=== PATIENT | female | born 1990 | race Caucasian/White ===

== ENCOUNTER 2021-05-18 06:40 | Inpatient (IN) | payer BC, SELFPAY ==
[2021-05-18] VITALS (86 sets, daily range): BP systolic 86–141; BP diastolic 52–92; PULSE 62–142; RESP 16; TEMP 36.4–38.2; O2SAT 96–100; BMI 34.0
[2021-05-18 07:18] LABS: ROM Internal Control Test YES-OK TO RESULT pt. (Internal QC)
[2021-05-18 07:20] LABS: ROM Patient Test POSITIVE (Negative)
[2021-05-18] MEDS: Lactated Ringers 1,000 ML 50 ML IV (07:20)
[2021-05-18 07:32] LABS: Absolute Lymphocyte Count 1.21 X10^3/uL (0.83-4.51); Absolute Neutrophil Count 13.8 X10^3/uL (2.0-7.7); Basophil# 0.03 X10^3/uL; Basophil% 0.2 % (0-1); Eosinophil# 0.02 X10^3/uL; Eosinophils% 0.1 % (0-5); Hematocrit 36.7 % (37-47); Hemoglobin 12.1 g/dL (12.0-15.0); Lymphocyte # 1.21 X10^3/ul (0.83-4.51); Lymphocyte % 7.6 % (19-41); Mean Corpuscular Hgb 29.1 pg (27.0-32.0); Mean Corpuscular Volume 88.2 fL (81-99); Monocyte# 0.79 X10^3/uL; NRBC Flagged by Analyzer 0 % (0-5); Neutrophil # 13.81 X10^3/uL (2.7-7.7); Neutrophil % 86.6 % (47-70); Platelet Count 269 K/mm3 (150-450); RBC Distribution Width SD 45.2 fl (35.1-43.9); Red Blood Count 4.16 M/mm3 (4.2-5.4); White Blood Count 15.9 K/mm3 (4.4-11.0)
[2021-05-18] MEDS: Lactated Ringers 500 ML 999 ML IV ×2 (07:50→08:35)
[2021-05-18] MEDS: Ondansetron 4 MG/2 ML Vial IV (07:56)
--- NOTE | 2021-05-18 08:05 | HP.PCM.OB_ITS ---
HPI - General General Date of Admission: 05/18/21 HPI Narrative ERIC VALERA, is a 30 F at 40.4 weeks gestation who presents with spontaneous rupture of membranes for clear fluid at 0245. Positive movement. Having some irregular contractions. Maternal Data Information GIANLUCA Calculator Estimated Delivery Date Method Current WG Current Estimate 05/14/21 Manual 40w 4d PFSH PFSH Medical History Anxiety Breast disorder Depression Headache HPV (human papilloma virus) infection Home Medications acetaminophen [Tylenol] 650 mg PO Q6H PRN 05/18/21 [History Last Taken Unknown] diphenhydramine-acetaminophen [Unisom Dual Relief] 1 tab PO PRN PRN 05/18/21 [History Last Taken 05/11/21 22:00] prenat.vits,azra,[id number] [ #2] 1 tab PO DAILY 05/18/21 [History La st Taken Unknown] Allergy/AdvReac Type Severity Reaction Status Date / Time shellfish derived Allergy Severe Swelling Verified 05/18/21 07:30 amoxicillin [From Augmentin] Allergy Intermediate Hives Verified 05/18/21 07:30 clavulanic acid Allergy Intermediate Hives Verified 05/18/21 07:30 [From Augmentin] Surgical History History of surgery History of surgery Social History Smoking Status: Never smoker History Elective abortions Hx Para 0 Spontaneous abortions Hx # Term Pregnancies Ectopic pregnancies Hx # Pregnancies Multiple births # of living children NST FHR Rate Baby A Baseline: 140 Variability:: Moderate Accelerations:: 15 x 15 Decelerations:: None NST Reactive:: Yes FHR Category:: Category I Uterine Activity:: occasional ROS Eyes Eyes: Denies blurry vision, change in vision or spots in vision ENT HEENT: Denies dizziness or headache(s) Cardiovascular Cardiovascular: Denies abdominal pain, chest pain or dyspnea Respiratory/Chest Respiratory/Chest: Denies cough, dyspnea, shortness of breath at rest or shortness of breath with exertion Gastrointestinal Gastrointestinal: Denies abdominal pain, diarrhea or vomiting Genitourinary Genitourinary: Denies change in urinary stream, difficulty urinating or dysuria Musculoskeletal Musculoskeletal: Reports none Integumentary Integumentary: Denies rash Neurologic Neurologic: Denies dizziness, headache(s), memory loss or weakness Psychiatric Psychiatric: Reports none Vital Signs Vital Signs Vital Signs: 05/18/21 07:38 05/18/21 07:41 05/18/21 08:34 Temperature 99.6 F H Temperature Source Temporal Pulse Rate 65 81 Blood Pressure 117/64 BP Systolic 117 BP Diastolic 64 Pulse Ox 96 05/18/21 08:39 05/18/21 08:44 05/18/21 08:53 Temperature Temperature Source Pulse Rate 70 69 98 Blood Pressure BP Systolic BP Diastolic Pulse Ox 99 98 98 05/18/21 08:58 05/18/21 09:03 05/18/21 09:08 Temperature Temperature Source Pulse Rate 98 111 H 98 Blood Pressure 132/84 H 141/92 H 138/81 H BP Systolic 132 141 138 BP Diastolic 84 92 81 Pulse Ox 98 98 99 05/18/21 09:15 05/18/21 09:18 05/18/21 09:23 Temperature Temperature Source Pulse Rate 97 73 83 Blood Pressure 123/61 H 99/55 L 101/57 L BP Systolic 123 99 101 BP Diastolic 61 55 57 Pulse Ox 100 05/18/21 09:28 05/18/21 09:33 05/18/21 09:34 Temperature 98.1 F Temperature Source Pulse Rate 77 66 70 Blood Pressure 112/55 L 107/56 L 105/58 L BP Systolic 112 107 105 BP Diastolic 55 56 58 Pulse Ox 100 100 05/18/21 09:38 05/18/21 09:43 05/18/21 09:48 Temperature Temperature Source Pulse Rate 62 115 H 101 H Blood Pressure 112/56 L 109/56 L 101/57 L BP Systolic 112 109 101 BP Diastolic 56 56 57 Pulse Ox 100 98 98 05/18/21 09:53 05/18/21 09:58 05/18/21 10:03 Temperature Temperature Source Pulse Rate 85 108 H 113 H Blood Pressure 102/57 L 100/57 L BP Systolic 102 100 BP Diastolic 57 57 Pulse Ox 98 98 99 05/18/21 10:04 05/18/21 10:08 05/18/21 10:09 Temperature Temperature Source Pulse Rate 114 H 112 H 109 H Blood Pressure 108/59 L 125/64 H BP Systolic 108 125 BP Diastolic 59 64 Pulse Ox 99 05/18/21 10:13 05/18/21 10:14 05/18/21 10:19 Temperature Temperature Source Pulse Rate 123 H 127 H 127 H Blood Pressure 107/63 111/66 104/61 BP Systolic 107 111 104 BP Diastolic 63 66 61 Pulse Ox 05/18/21 10:24 05/18/21 11:58 05/18/21 11:59 Temperature 100.0 F H Temperature Source Pulse Rate 109 H 107 H Blood Pressure 118/63 113/62 BP Systolic 118 113 BP Diastolic 63 62 Pulse Ox 05/18/21 13:33 05/18/21 13:48 05/18/21 13:58 Temperature 100.8 F H Temperature Source Pulse Rate 115 H 122 H Blood Pressure 105/52 L 109/57 L BP Systolic 105 109 BP Diastolic 52 57 Pulse Ox 05/18/21 14:03 05/18/21 14:07 05/18/21 14:18 Temperature 99.5 F H Temperature Source Temporal Pulse Rate 120 H Blood Pressure 107/69 97/57 L BP Systolic 107 97 BP Diastolic 69 57 Pulse Ox 05/18/21 14:19 05/18/21 14:24 05/18/21 14:29 Temperature Temperature Source Pulse Rate 123 H 113 H 121 H Blood Pressure BP Systolic BP Diastolic Pulse Ox 96 96 97 05/18/21 14:33 05/18/21 14:34 05/18/21 14:39 Temperature Temperature Source Pulse Rate 129 H 122 H 128 H Blood Pressure 98/55 L BP Systolic 98 BP Diastolic 55 Pulse Ox 97 97 05/18/21 14:44 05/18/21 14:48 05/18/21 14:49 Temperature Temperature Source Pulse Rate 126 H 127 H 124 H Blood Pressure 98/60 BP Systolic 98 BP Diastolic 60 Pulse Ox 97 96 05/18/21 14:54 05/18/21 14:59 05/18/21 15:03 Temperature Temperature Source Pulse Rate 127 H 131 H Blood Pressure 91/54 L BP Systolic 91 BP Diastolic 54 Pulse Ox 97 97 05/18/21 15:04 05/18/21 15:09 05/18/21 15:14 Temperature Temperature Source Pulse Rate 122 H 142 H 137 H Blood Pressure BP Systolic BP Diastolic Pulse Ox 97 97 98 05/18/21 15:18 05/18/21 15:19 05/18/21 15:23 Temperature Temperature Source Pulse Rate 133 H 128 H Blood Pressure 99/62 86/54 L BP Systolic 99 86 BP Diastolic 62 54 Pulse Ox 97 05/18/21 15:24 05/18/21 15:29 05/18/21 15:33 Temperature Temperature Source Pulse Rate 101 H 119 H 118 H Blood Pressure 100/60 BP Systolic 100 BP Diastolic 60 Pulse Ox 98 99 05/18/21 15:34 05/18/21 15:36 05/18/21 15:39 Temperature 97.5 F L Temperature Source Pulse Rate 123 H 132 H Blood Pressure BP Systolic BP Diastolic Pulse Ox 97 98 05/18/21 15:44 05/18/21 15:47 05/18/21 15:49 Temperature Temperature Source Pulse Rate 131 H 112 H 126 H Blood Pressure 115/63 BP Systolic 115 BP Diastolic 63 Pulse Ox 98 98 05/18/21 15:54 05/18/21 15:59 05/18/21 16:04 Temperature Temperature Source Pulse Rate 113 H 126 H 118 H Blood Pressure BP Systolic BP Diastolic Pulse Ox 98 98 98 05/18/21 16:09 05/18/21 16:14 05/18/21 16:19 Temperature Temperature Source Pulse Rate 119 H 115 H 118 H Blood Pressure BP Systolic BP Diastolic Pulse Ox 98 98 98 05/18/21 16:24 05/18/21 16:29 05/18/21 16:34 Temperature Temperature Source Pulse Rate 120 H 124 H 133 H Blood Pressure BP Systolic BP Diastolic Pulse Ox 98 98 98 05/18/21 16:39 05/18/21 16:44 05/18/21 16:49 Temperature Temperature Source Pulse Rate 128 H 127 H 127 H Blood Pressure BP Systolic BP Diastolic Pulse Ox 98 98 98 05/18/21 16:54 05/18/21 16:59 05/18/21 17:04 Temperature Temperature Source Pulse Rate 124 H 132 H 117 H Blood Pressure BP Systolic BP Diastolic Pulse Ox 98 98 98 05/18/21 17:09 05/18/21 17:14 05/18/21 17:19 Temperature Temperature Source Pulse Rate 126 H 123 H 121 H Blood Pressure 108/61 BP Systolic 108 BP Diastolic 61 Pulse Ox 98 99 98 05/18/21 17:24 05/18/21 17:29 05/18/21 17:52 Temperature Temperature Source Pulse Rate 128 H 124 H 134 H Blood Pressure BP Systolic BP Diastolic Pulse Ox 98 98 98 Weight Weight: 210 lb 8 oz Body Mass Index (BMI) 34.0 Physical Exam Const alert, oriented x3 and no apparent distress General Appearance: cooperative Orientation / Consciousness: awake Exam Limitations: no limitations HEENT normocephalic Head and Scalp: normal to inspection Eyes General Eye: normal appearance of both eyes Neck full ROM and no lymphadenopathy Lymph Lymphatic: no lymphadenopathy noted Chest inspection of chest normal Resp normal respiratory effort, normal air movement and clear to auscultation bilaterally Effort and Inspection: able to speak in complete sentences and symmetric chest movement Cardio regular rate and regular rhythm GI normal to inspection, nondistended, normoactive bowel sounds Manual OB Exam: presentation cephalic, dilated 4, effaced 80 and station 0 Amniotic Fluid: clear amniotic fluid Back/Spine normal ROM Extremity full ROM and no calf tenderness Skin no rashes or lesions noted General Skin Exam: no breakdown Neuro oriented x3 and CN's II-XII intact bilaterally Psych mental status grossly normal and thought process normal Labs Labs Labs: Blood Type B POSITIVE Antibody Screen NEGATIVE Hct 36.7 % (37-47) L Hgb 12.1 g/dL (12.0-15.0) Rubella - immune HB -neg HC - neg HIV- Nr RPR- NR GBS- negative COVID- negative Assessment & Plan (1) 40 weeks gestation of : (2) Spontaneous rupture of amniotic membranes: PLAN: Admit to labor and delivery Routine labs Start IV fluids and titrate per orders GBS negative Anticipate Dr. Ledezma notified and is collaborating physician
--- NOTE | 2021-05-18 08:46 | PCM.PN.OB ---
Objective Data Objective Data Vital Signs: Vital Signs Temp Pulse BP Pulse Ox 99.6 F H 69 117/64 98 05/18/21 07:38 05/18/21 08:44 05/18/21 07:41 05/18/21 08:44 Weight: 210 lb 8 oz Body Mass Index (BMI) 34.0 Intake & Output: Intake and Output for Last 24 Hours 05/16/21 05/17/21 05/18/21 23:59 23:59 23:59 Intake Total 536.67 / 536.67 Balance 536.67 / 536.67 Lab / Micro Data Result Diagrams: 05/18/21 07:20 Labs: Laboratory Results - last 24 hr 05/18/21 07:00: Vag Amniotic Fld Detect POSITIVE H 05/18/21 07:20: WBC 15.9 H, RBC 4.16 L, Hgb 12.1, Hct 36.7 L, MCV 88.2, MCH 29.1, MCHC 33.0, RDW Std Deviation 45.2 H, RDW Coeff of Juan José 14.0, Plt Count 269, MPV 11.0, Immature Gran % (Auto) 0.500, Neut % (Auto) 86.6 H, Lymph % (Auto) 7.6 L, [place] % (Auto) 5.0, Eos % (Auto) 0.1, Baso % (Auto) 0.2, Absolute Neuts (auto) 13.8 H, Absolute Lymphs (auto) 1.21, Nucleated RBC % 0
[2021-05-18] MEDS: fentaNYL-bupivacaine (epidural) 100 ML BAG EPIDURAL (09:15)
[2021-05-18] MEDS: Oxytocin 30 units/NS 500 ml 30 UNITS/500 ML IV.SOLN IV (12:33)
[2021-05-18] MEDS: Oxytocin 30 units/NS 500 ml 30 UNITS/500 ML IV.SOLN 999 UNITS IV (13:06)
[2021-05-18] MEDS: Lactated Ringers 500 ML IV.SOLN. IV (15:10)
--- NOTE | 2021-05-18 18:13 | NURSING ---
Called CNM Plotts to give 2 hour update about patients Pule rate of 135. CNM states that she was updated by Dr. Ledezma and agreed to wait till 1800 to recheck pulse. Pt Asymptomatic and denies difficulty breathing or chest pain, lung sounds clear. EKG ordered by CNM.
--- NOTE | 2021-05-18 18:16 | EKG12_ITS ---
Test Reason : TACHYCARDIA Blood Pressure : / mmHG Vent. Rate : 123 BPM Atrial Rate : 123 BPM P-R Int : 118 ms QRS Dur : 068 ms QT Int : 314 ms P-R-T Axes : 057 057 031 degrees QTc Int : 449 ms Sinus tachycardia Otherwise normal ECG Confirmed by RADHA SIGALA, JANAE ([id number]), story editor GERARD TORRES ([id number]) on 05/23/2021 9:04:22 AM Referred By: SEAN MADDEN Confirmed By:JANAE GARCIA MD
--- NOTE | 2021-05-18 19:23 | OP.PCM_ITS ---
Assessment & Plan (1) Spontaneous rupture of amniotic membranes: (2) 40 weeks gestation of : (3) (spontaneous vaginal delivery): Maternal Data Information GIANLUCA Calculator Estimated Delivery Date Method Current WG Current Estimate 05/14/21 Manual 40w 4d Vaginal Delivery Maternal Presentation Maternal Presentation: Spontaneous Rupture of Membranes Operative Information Pre-Operative Diagnosis: Term Gestation, SROM Post-Operative Diagnosis: , live female Surgery / Procedure Performed: Spontaneous Vaginal Delivery Type of Anesthesia: Epidural Estimated Blood Loss: 450 Time of Delivery: 12:51 Findings Description of Procedure: Called to patient room for delivery. Patient pushing well with contraction and delivered infant head with minimal maternal effort followed by anterior shoulder. Posterior shoulder and remainder of delivered. Vigorous female placed on maternal abdomen and was attended to by [facility] staff. IV pitocin started for active managment of the third stage of labor. Cord clamped and cut vy FOB after 2 minute delay and infant placed skin to skin. Placenta delivered spontaneously and intact. After inspection, a first degree vaginal laceration and a second degree perineal laceration noted. Both lacerations repaired in usual fashion with 3-0 Vicryl Rapid. Hemostasis obtained. Vaginal sweep completed by me. Fundus firm 1 below U. EBL 450 cc, APGARS 9/9. Patient bonding with infant at this time. Dr. Ledezma notified of delivery. Presentation: Vertex Amniotic Membrane Rupture Type: Spontaneous Time of Membrane Rupture: 244 Amniotic Fluid Description: Clear Placental Delivery Description: Spontaneous Placenta Disposition: [facility] Cord Vessel Description: 3 Vessels Cord Entanglement: None A Gender: Female (1 minute): 9 (5 minute): 9 Delayed Cord Clamping: Yes Post Vaginal Delivery Medications Given After Delivery: IV Pitocin Episiotomy Description: None Laceration: Perineal Extension/lac, Vaginal Extension/lac and 2nd degree Complication Complications: None
[2021-05-18] MEDS: Naproxen 500 MG Tablet PO (22:25)
[2021-05-19] VITALS (8 sets, daily range): BP systolic 109–114; BP diastolic 63–71; PULSE 97–112; RESP 14–16; TEMP 36.3–37.4; O2SAT 96
[2021-05-19 05:53] LABS: Hematocrit 30.4 % (37-47); Hemoglobin 9.8 g/dL (12.0-15.0); Mean Corp Hgb Conc 32.2 g/dL (32-36); Mean Corpuscular Hgb 28.9 pg (27.0-32.0); Mean Corpuscular Volume 89.7 fL (81-99); Mean Platelet Vol. 11.2 fl (6.2-12.0); Platelet Count 206 K/mm3 (150-450); RBC Distribution Width CV 14.2 % (11.6-14.6); RBC Distribution Width SD 46.2 fl (35.1-43.9); Red Blood Count 3.39 M/mm3 (4.2-5.4); White Blood Count 14.2 K/mm3 (4.4-11.0)
--- NOTE | 2021-05-19 08:09 | PCM.DC ---
Discharge Instructions Follow Up Care Test Results: Test results from this visit will be discussed in further detail at your follow-up appointment, if applicable. Discharge Plan Admission Admit Date/Time: 05/18/21 06:40 Primary Reason for Your Visit: Delivery Attending Provider: Gretchen Stephenson Instructions Patient Instructions: After a Vaginal , After Delivery Concerns, : Caring for Yourself Discharge Orders/Prescriptions Prescriptions: Continued prenat.vits,azra,[id number]-[id number] Tablet 1 tab PO DAILY RF: 0 Discontinued acetaminophen [Tylenol] 325 mg Tablet 650 mg PO Q6H PRN (Reason: Sleep) RF: 0 Unisom Dual Relief 50-650 mg Tablet 1 tab PO PRN PRN (Reason: Sleep) RF: 0 Disposition Disposition (needs filled in before D/C Order can be placed): Home, Self Care
--- NOTE | 2021-05-19 08:09 | PCM.PN.OB ---
Subjective Subjective Patient seen at bedside. Patient doing well desires discharge home. Pain well controlled. Ambulating and voiding without difficulty. Lochia normal. Denies chest pain, shortness of breath, leg pain. Objective Data Objective Data Vital Signs: Vital Signs Temp Pulse Resp BP Pulse Ox 97.3 F L 99 16 114/71 96 05/19/21 04:25 05/19/21 04:25 05/19/21 04:25 05/19/21 04:25 05/19/21 00:48 Oxygen Delivery Method Room Air Weight: 210 lb 8 oz Body Mass Index (BMI) 34.0 Intake & Output: Intake and Output for Last 24 Hours 05/17/21 05/18/21 05/19/21 23:59 23:59 23:59 Intake Total 2277.27 / 2277.27 Output Total 1000 / 1000 Balance 1277.27 / 1277.27 Lab / Micro Data Result Diagrams: 05/19/21 05:15 Labs: Laboratory Results - last 24 hr 05/18/21 07:20: Blood Type B POSITIVE, Antibody Screen NEGATIVE 05/19/21 05:15: WBC 14.2 H, RBC 3.39 L, Hgb 9.8 L, Hct 30.4 L, MCV 89.7, MCH 28.9, MCHC 32.2, RDW Std Deviation 46.2 H, RDW Coeff of Juan José 14.2, Plt Count 206, MPV 11.2 Physical Exam Const alert and no apparent distress General Appearance: comfortable HEENT normocephalic Resp normal respiratory effort Extremity normal to inspection Assessment & Plan (1) (spontaneous vaginal delivery): PLAN: Patient doing well and desires discharge home. Meeting milestones to go home. Discharge instructions reviewed. Discharge order placed. (2) Laceration, obstetrical, second degree:
== END 2021-05-19 15:00 | disposition home or self-care (01) | DRG 807 ==
PROVIDERS: Advanced Practice Midwife; Admitting Provider Advanced Practice Midwife; Visit Provider Advanced Practice Midwife
DX: O42.02 Full-term premature rupture of membranes, onset of labor within 24 hours of rupture (principal); Z37.0 Single live birth; O70.1 Second degree perineal laceration during delivery; Z3A.40 40 weeks gestation of pregnancy
CPT/HCPCS: 59025; 59050; 84112; 85025; 85027; 86850; 86900; 86901; 93005; 99218; J7120; G0378; J2405

== ENCOUNTER → 2021-05-21 20:04 | Outpatient (CLI) | payer BC, SELFPAY ==
[2021-05-18 07:26] VITALS: BMI 34.0
== END ==
PROVIDERS: Referring Provider Advanced Practice Midwife; Visit Provider Advanced Practice Midwife
DX: Z39.1 Encounter for care and examination of lactating mother (principal)
CPT/HCPCS: 96158; 96159

== ENCOUNTER 2021-11-22 12:06 | Outpatient (CLI) | payer BC, SELFPAY ==
--- NOTE | 2021-11-22 12:18 | US_ITS ---
STUDY: THYROID ULTRASOUND REASON FOR EXAM: Female, 31 years old. ENLARGED THYROID TECHNIQUE: Ultrasound evaluation of the thyroid was performed with real-time and static aviles-scale imaging. COMPARISON: None. FINDINGS: RIGHT LOBE: The right lobe of the thyroid gland measures 4.3x1.5 cm. There is a homogeneous echotexture. There is a nodule. This measures 2 x 3 x 2 mm. The lesion is cystic with regular margins and kervin nodular doppler flow. LEFT LOBE: The left lobe of the thyroid gland measures 4.3 x 1.4 cm. There is a homogeneous echotexture. There is a nodule. This measures 3 x 2 x 2 mm. The lesion is cystic with regular margins and kervin nodular doppler flow. ISTHMUS: The isthmus measures 3 mm. US/Thyroid IMPRESSION: There are RIGHT nodules. This nodule is cystic or nearly completely cystic. TI-RADS points: 0. TI-RADS category: TR1. This nodule is benign and no FNA or follow-up is necessary. There are left nodules. TR1: Benign: No FNA Electronically Signed: Yaniv Mauro MD at 16:16 EST Reading Location ID and State: [facility] / [place] , Service support ,
== END 2021-11-22 23:59 | disposition home or self-care (01) ==
PROVIDERS: PCP Nurse Practitioner; Referring Provider Nurse Practitioner; Visit Provider Nurse Practitioner
DX: E04.9 Nontoxic goiter, unspecified (principal)
CPT/HCPCS: 76536

== ENCOUNTER 2023-06-08 05:14 | Inpatient (IN) | payer BC, SELFPAY ==
[2023-06-08] VITALS (37 sets, daily range): BP systolic 102–144; BP diastolic 64–87; PULSE 77–202; RESP 16; TEMP 36.1–37.2; O2SAT 82–98; BMI 35.3
[2023-06-08 05:12] LABS: ROM Internal Control Test YES-OK TO RESULT pt. (Internal QC)
[2023-06-08 05:13] LABS: ROM Patient Test POSITIVE (Negative); Record Kit Lot#, ROM+ K1374
[2023-06-08] MEDS: LACTATED RINGERS 500 ML 999 ML IV (05:40)
[2023-06-08 05:49] LABS: Absolute Lymphocyte Count 1.78 X10^3/uL (0.83-4.51); Absolute Neutrophil Count 7.6 X10^3/uL (2.0-7.7); Basophil# 0.02 X10^3/uL; Basophil% 0.2 % (0-1); Eosinophil# 0.07 X10^3/uL; Eosinophils% 0.7 % (0-5); Hematocrit 37.2 % (37-47); Hemoglobin 12.3 g/dL (12.0-15.0); Lymphocyte # 1.78 X10^3/ul (0.83-4.51); Lymphocyte % 17.5 % (19-41); Mean Corp Hgb Conc 33.1 g/dL (32-36); Mean Corpuscular Hgb 28.6 pg (27.0-32.0); Mean Corpuscular Volume 86.5 fL (81-99); Mean Platelet Vol. 10.6 fl (6.2-12.0); Monocyte# 0.72 X10^3/uL; Monocyte% 7.1 % (0-10); NRBC Flagged by Analyzer 0 % (0-5); Neutrophil # 7.56 X10^3/uL (2.7-7.7); Neutrophil % 74.1 % (47-70); Platelet Count 285 K/mm3 (150-450); RBC Distribution Width CV 14.2 % (11.6-14.6); White Blood Count 10.2 K/mm3 (4.4-11.0)
[2023-06-08] MEDS: Lactated Ringers 1,000 ML 50 ML IV (06:26)
[2023-06-08] MEDS: Oxytocin 10 UNITS/ML Vial IM (08:53)
[2023-06-08] MEDS: Oxytocin 15 Units/NS 250ml 15 UNITS/250 ML IV.SOLN 83 UNITS IV (08:53)
--- NOTE | 2023-06-08 08:53 | PCM.HP.OB ---
HPI - General General Date of Admission: 06/08/23 Date of Service: 06/08/23 HPI Narrative ERIC VALERA, is a 32 F who presents with LOF and ctxs. Maternal Data Information Final GIANLUCA: 06/10/23 Gestational age: 39&5 PFSH PFSH Medical History (Updated 06/08/23 @ 08:[address] Kamilah Guidry MD) Anxiety Anxiety Breast disorder Depression Headache Headache HPV (human papilloma virus) infection HPV (human papilloma virus) infection (spontaneous vaginal delivery) Home Medications prenat.vits,azra,iby-fami-dbhra 1 tab PO DAILY Check with primary doctor 05/18/21 [History Last Taken Unknown] Allergy/AdvReac Type Severity Reaction Status Date / Time shellfish derived Allergy Severe Swelling Verified 06/08/23 04:52 acetaminophen [From Percocet] Allergy Intermediate Hives Verified 06/08/23 04:52 amoxicillin [From Augmentin] Allergy Intermediate Hives Verified 06/08/23 04:52 clavulanic acid Allergy Intermediate Hives Verified 05/18/21 07:30 [From Augmentin] oxycodone [From Percocet] Allergy Intermediate Hives Verified 06/08/23 04:52 Surgical History History of appendectomy History of surgery History of surgery History of surgery Social History Smoking Status: Current every day smoker History Elective abortions Hx Para 1 Spontaneous abortions Hx # Term Pregnancies Ectopic pregnancies Hx # Pregnancies Multiple births # of living children Vital Signs Vital Signs Vital Signs: 06/08/23 04:18 06/08/23 04:18 06/08/23 04:20 Temperature Temperature Source Pulse Rate 106 H Blood Pressure 131/77 H BP Systolic 131 BP Diastolic 77 Pulse Ox 96 06/08/23 04:20 06/08/23 06:29 06/08/23 06:29 Temperature Temperature Source Pulse Rate 91 102 H Blood Pressure 144/87 H BP Systolic 144 BP Diastolic 87 Pulse Ox 06/08/23 06:29 06/08/23 06:29 06/08/23 07:29 Temperature 98.9 F Temperature Source Temporal Pulse Rate Blood Pressure 126/76 H BP Systolic 126 BP Diastolic 76 Pulse Ox 06/08/23 07:29 06/08/23 07:29 06/08/23 07:29 Temperature Temperature Source Temporal Pulse Rate 106 H 106 H Blood Pressure BP Systolic BP Diastolic Pulse Ox 06/08/23 07:29 06/08/23 07:29 06/08/23 07:50 Temperature 97.1 F L Temperature Source Pulse Rate 99 Blood Pressure BP Systolic BP Diastolic Pulse Ox 97 06/08/23 07:50 06/08/23 07:52 06/08/23 08:13 Temperature Temperature Source Pulse Rate 115 H Blood Pressure 129/74 H BP Systolic 129 BP Diastolic 74 Pulse Ox 98 06/08/23 08:13 06/08/23 08:13 06/08/23 08:13 Temperature Temperature Source Temporal Pulse Rate 106 H Blood Pressure BP Systolic BP Diastolic Pulse Ox 94 06/08/23 08:13 06/08/23 08:13 06/08/23 08:13 Temperature 97.6 F L Temperature Source Pulse Rate 109 H Blood Pressure BP Systolic BP Diastolic Pulse Ox 97 Weight Weight: 219 lb Body Mass Index (BMI) 35.3 Labs Labs Labs: Blood Type B POSITIVE Antibody Screen NEGATIVE Hct 37.2 % (37-47) Hgb 12.3 g/dL (12.0-15.0) Syphilis Total Ab Pending see [facility] H&P Assessment & Plan (1) 39 weeks gestation of : COMMENT: @ 39&5 PLAN: Plan Admit to L&D GBS negative Patient is now s/p vaginal delivery
[2023-06-08] MEDS: Lidocaine 1% (20 ml mdv) 20 ML Vial INFILT (08:58)
--- NOTE | 2023-06-08 09:12 | OP.PCM_ITS ---
Assessment & Plan (1) (spontaneous vaginal delivery): COMMENT: KW IOL active labor (2) 39 weeks gestation of : COMMENT: @ 39&5 Maternal Data Information Final GIANLUCA: 06/10/23 Final GIANLUCA Source: [place] >20 weeks Gestational age: 39.5 weeks Vaginal Delivery Maternal Presentation Maternal Presentation: Active Labor Maternal Presentation: Progressed well to 10cm dilated and made steady progress with effective maternal pushing. Delivered the head in MICK presentation. The head was delivered atraumatically and no loose nuchal cord was identified . The anterior and posterior shoulders delivered without complication followed by the rest of the infant and the infant was placed on the maternal abdomen. Delayed cord clamping was employed for approximately 3 minutes. Cord was clamped and cut and gentle traction was applied to the cord and the placenta delivered spontaneously. Immediately following, it was noted to be intact with a 3 vessel cord. The perineum and vagina were inspected and noted to have a first degree laceration which was repaired with 3-0 Vicryl in the usual fashion. EBL was 100cc. Patient and tolerated delivery well. Apgars 9/9. Delivery for [facility], Dr Guidry aware of delivery. Dr Tripathi notified of vaginal delivery and orders reviewed. Physician agrees with current plan of care. Operative Information Date of Procedure: 06/08/23 Pre-Operative Diagnosis: See AP comments Post-Operative Diagnosis: Same Surgery / Procedure Performed: Spontaneous Vaginal Delivery nurse intern #1: Lindsey Max Type of Anesthesia: None Estimated Blood Loss: 100 Time of Delivery: 08:45 Findings Presentation: Vertex Placenta Disposition: [facility] Cord Vessel Description: 3 Vessels Cord Entanglement: None A Gender: Male (1 minute): 9 (5 minute): 9 Post Vaginal Delivery Medications Given After Delivery: IV Pitocin and IM Pitocin Episiotomy Description: None Laceration: 1st degree Complication Complications: None Multi Select Codes Urinary/Genital Urinary/Genital CPT Codes: 10005 Vaginal Delivery Only
[2023-06-08] MEDS: Ibuprofen 600 MG Tablet PO ×2 (09:41→15:22)
[2023-06-08] MEDS: Acetaminophen 500 MG Tablet 1000 MG PO (11:49)
--- NOTE | 2023-06-08 20:39 | CASEMGMT ---
Social Work Assessment Labor and Delivery Unit Patient Address: [address] [place] [address] Phone number: [phone] Date of Referral: 06/08/2023 Time of Referral:? 12:20 Referred By: Lindsey Max Date of Intervention: ?06/08/2023 Time of Intervention:? 17:00 Reason for Referral:? Mental Health History obtained from: medical records and mother of baby (MOB) and FOB Household composition: MOB, FOB ? Gil, 2 year old sister Cee and new baby Patient's parent/guardian status: MOB and FOB are and have been together 5 years. They share a 2-year-old daughter. DV concerns denied. Medical History: MOB received adequate care. One prior child and denies medical concerns for self and child. Baby boy Vipul 9/9 apgars and 6lbs 13 oz. MOB plans to breastfeed and did with prev child. Educational Status: No literacy concerns Financial Status: No financial concerns Infant Supplies: Parents report having all necessary supplies and equipment Childcare/Caregiver(s):? 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 No concerns Programs/Agencies Involved: ??None Children Services/Legal Issues:??? None Behavioral Health Issues: ??Mental Health History: Mother denies any major mental health concerns/history. Mother has history of anxiety. Substance Use History:?? Denies personal history Family History: MOB?s father has history of alcoholism but any other family history.??? Drug Screens: ?None Family/Social Stressors:? Denies Support Systems: Grandparents are involved and supportive Depression: Education provided and parents receptive Shaken Baby: Education provided and parents receptive Safe Sleeping: Education provided and parents receptive ASSESSMENT: MOB and FOB appropriate. No immediate concerns or needs at this time.? PLAN:? ?No other services requested or indicated Mindy Diaz ADVERTISING CAMPAIGN MANAGER, PRODUCT DEVELOPMENT DIRECTOR
[2023-06-09 03:53] VITALS: BP 117/79; PULSE 91; RESP 16; TEMP 36.5; O2SAT 99
[2023-06-09] MEDS: Ibuprofen 600 MG Tablet PO (06:39)
--- NOTE | 2023-06-09 08:22 | PCM.PROGNOTE ---
Subjective Subjective patient seen at bedside, doing well. Patient reports good pain control. lochia mild. Objective Data Objective Data Vital Signs: Vital Signs Temp Pulse Resp BP Pulse Ox O2 Del Method 97.7 F L 91 16 117/79 99 Room Air 06/09/23 03:53 06/09/23 03:53 06/09/23 03:53 06/09/23 03:53 06/09/23 03:53 06/09/23 03:53 Oxygen Delivery Method Room Air Weight: 99.337 kg Body Mass Index (BMI) 35.3 Intake & Output: Intake and Output for Last 24 Hours 06/07/23 06/08/23 06/09/23 23:59 23:59 23:59 Intake Total 811.67 / 811.67 Output Total 900 / 900 Balance -88.33 / -88.33 Lab / Micro Data 06/08/23 05:40 Physical Exam Narrative Abd: fundus firm Const alert and oriented x3 General Appearance: cooperative HEENT normocephalic Neck General: normal visual inspection GI soft to palpation and non-distended GI Narrative: Fundus firm Extremity normal to inspection and no calf tenderness Skin no rashes or lesions noted Neuro oriented x3 and CN's II-XII intact bilaterally Psych mental status grossly normal Assessment & Plan Assessment/Plan (1) (spontaneous vaginal delivery): (2) 39 weeks gestation of : (3) First degree laceration of perineum during delivery, : PLAN: Plan PPD# 1 , Doing well Routine care pain mgmt ambulation dc home
--- NOTE | 2023-06-09 08:23 | DCINST_ITS ---
Discharge Instructions Diet Discharge Diet: No restrictions Activity May resume sexual activity in: 6-8 weeks Dressing / Incision Call your doctor if you observe: Fever of 101 or Higher, Inability to urinate, Using more than 1 pad per hour and Uncontrolled pain Follow Up Care Please Follow Up With: Stacy Ibarra MD When: 1-2 weeks post and again at 6 weeks post . [phone] Test Results: Test results from this visit will be discussed in further detail at your follow- up appointment, if applicable. Discharge Plan Admission Admit Date/Time: 06/08/23 05:14 Attending Provider: Lindsey Max Primary Care Provider: Santa Ball NP Discharge Orders/Prescriptions Prescriptions: New acetaminophen 500 mg Tablet 1,000 mg PO Q6H PRN PRN (Reason: Pain 1-10 Or Fever) Qty: 0 0RF ibuprofen 600 mg Tablet 600 mg PO Q6H PRN PRN (Reason: Pain Score 1-3) Qty: 0 0RF Continued prenat.vits,azra,rni-mwuw-obotc Tablet 1 tab PO DAILY Referrals / Follow Up: Santa Ball NP, [employer] [Primary Care Provider] - Disposition Disposition (needs filled in before D/C Order can be placed): Home, Self Care
[2023-06-09 10:15] VITALS: BP 109/73; PULSE 91; RESP 16; TEMP 36.4; O2SAT 96
--- NOTE | 2023-06-13 16:27 | NURSING ---
Attempted follow up phone call attempt, no answer. Voicemail left.
== END 2023-06-09 13:08 | disposition home or self-care (01) | DRG 807 ==
LOC: WPOUT 05:14 → WP 05:14
PROVIDERS: Admitting Provider Obstetrics & Gynecology; PCP Nurse Practitioner; Visit Provider Advanced Practice Midwife
DX: O42.92 Full-term premature rupture of membranes, unspecified as to length of time between rupture and onset of labor (principal); Z37.0 Single live birth; F17.200 Nicotine dependence, unspecified, uncomplicated; O70.0 First degree perineal laceration during delivery; O99.334 Smoking (tobacco) complicating childbirth; Z3A.39 39 weeks gestation of pregnancy
CPT/HCPCS: 59025; 59050; 84112; 85025; 86780; 86850; 86900; 86901; 99221; J7120; G0378